=== PATIENT | male | born 1970 | race Caucasian/White ===

== ENCOUNTER → 2017-11-10 | Outpatient (CLI) | payer OTHER ==
[~2017-11-10] MED LIST: ASPIR 8181 MG PO; ATORVASTATIN CA40 MG PO; BRILINTA90 MG PO; HYDROCODONE-AP1 EAC6 PO; KEFLEX500 M1 PO; LOPRESSOR25 PO; MEDROLDOSEPACK PO; NITROGLYCERIN0.4 MG SUBLING; PLAVIX 75 MG TA75 M1
[2017-11-10 07:33] LABS: CHOLESTEROL 96 mg/dL (<200); HDL CHOLESTEROL 29 mg/dL (>40); LDL CHOLESTEROL 30 mg/dL (<100); SERUM ASSESSMENT Clear; TC:HDL 3.3 Ratio (Not establshd); TRIGLYCERIDE 185 mg/dL (<150); VLDL 37 mg/dL (<40)
== END ==
LOC: M.LAB 06:57
PROVIDERS: Internal Medicine Cardiovascular Disease
DX: E78.2 Mixed hyperlipidemia (principal); Z87.891 Personal history of nicotine dependence

== ENCOUNTER 2018-04-10 05:48 | Inpatient (IN) | payer OTHER ==
[2018-04-10] VITALS (10 sets, daily range): BP systolic 114–142; BP diastolic 63–81
[~2018-04-10] VITALS: Ht 175.3 cm; Wt 112.9 kg
[2018-04-10 06:22] LABS: ABSOLUTE BASOPHILS 0.1 thou/uL (0.0-0.2); ABSOLUTE EOSINOPHILS 0.2 thou/uL (0.0-0.7); ABSOLUTE LYMPHOCYTES 1.8 thou/uL (0.8-5.3); ABSOLUTE MONOCYTES 0.6 thou/uL (0.0-1.2); ABSOLUTE NEUTROPHILS 5.4 thou/uL (1.6-8.1); BASOPHILS 1.3 %; EOSINOPHILS 2.7 %; HEMATOCRIT 41.9 % (42.0-52.0); HEMOGLOBIN 14.4 gm/dL (14.0-18.0); LYMPHOCYTES 21.8 %; MCH 29.6 pg (26.0-34.0); MCHC 34.3 g/dL (28.0-37.0); MCV 86.3 fL (80.0-100.0); MONOCYTES 7.6 %; MPV 8.5 fl. (7.2-11.1); NUCLEATED RBCS 0 /100WBC; PLATELET COUNT* 238 thou/uL (150-400); POLYS 66.6 %; RBC 4.86 mil/uL (4.50-6.00); RDW-CV 12.9 % (10.5-14.5); WBC 8.1 thou/uL (4.0-11.0)
[2018-04-10 06:27] LABS: ANION GAP 9 mmol/L (7-16); BUN 14 mg/dL (7-18); CALCIUM 8.8 mg/dL (8.5-10.1); CHLORIDE 103 mmol/L (98-107); CO2 27 mmol/L (21-32); CREATININE 0.9 mg/dL (0.6-1.3); GLUCOSE 169 mg/dL (70-99); POTASSIUM 3.5 mmol/L (3.5-5.1); SODIUM 139 mmol/L (136-145)
[2018-04-10 06:38] LABS: ALBUMIN 3.7 g/dL (3.4-5.0); ALKALINE PHOSPHATASE 85 U/L (46-116); LIPASE 106 U/L (73-393); NT-PRO BRAIN NAT PEPTIDE 99 pg/mL (<300); SGOT 20 U/L (15-37); SGPT 41 U/L (30-65); TOTAL BILIRUBIN 0.8 mg/dL (<0.1-1.0); TROPONIN-I LEVEL <0.06 ng/mL (<0.06)
[2018-04-10 06:49] LABS: APTT 26.9 Seconds (25.0-31.3); PROTIME 10.5 Seconds (9.20-11.50)
[2018-04-10 10:39] LABS: ANION GAP 9 mmol/L (7-16); BUN 14 mg/dL (7-18); CALCIUM 8.8 mg/dL (8.5-10.1); CHLORIDE 104 mmol/L (98-107); CHOLESTEROL 97 mg/dL (<200); CO2 25 mmol/L (21-32); CREATININE 0.9 mg/dL (0.6-1.3); GLUCOSE 127 mg/dL (70-99); HDL CHOLESTEROL 30 mg/dL (>40); LDL CHOLESTEROL 46 mg/dL (<100); POTASSIUM 4.1 mmol/L (3.5-5.1); SODIUM 138 mmol/L (136-145); TC:HDL 3.2 Ratio (Not establshd); TRIGLYCERIDE 107 mg/dL (<150); VLDL 21 mg/dL (<40)
[2018-04-10 10:40] LABS: SERUM ASSESSMENT Clear
--- NOTE | 2018-04-10 11:02 | NUR ---
PT SIGNED CONSENT FORM FOR PIERCING ARTIST. CONSENT PLACED IN PT'S CHART.
--- NOTE | 2018-04-10 12:30 | NUR ---
POST HEART CATH R RADIAL SITE-C/D/I, NO HEMATOMA BEDISDE REPORT GIVEN PATIENT WITH SOME PAIN R SHOULDER/CHEST AREA, IMPROVING WILL CONTNUE TO MONITOR
--- NOTE | 2018-04-10 13:00 | CARD ---
[address] [address] CARDIAC CATH REPORT Name: FLOR LOPEZ Room: [address] IN ..#: [id number] Admission: 04/10/18 Attend Phys: Vijay Arana MD Discharge: Date of : 68 Report #: [id number] THIS REPORT FOR: //name// APPROVED REPORT Study performed: 04/10/2018 10:29:07 Patient Details The patient is a 47 year-old male Event Personnel Harman Rahman Direct Support Staff Member, Vega Winkel, Angela RCIS Scrub, Kucera, Brad Monitor, Gray, Jill RN Conductor Freight Procedures Performed Left Heart Cath w/or w/o Coronaries [facility] Procedure Narrative The patient was brought electively to the Cardiac Catheterization Laboratory and was prepped and draped in a sterile manner. The right wrist was infiltrated with 2% Lidocaine subcutaneous anesthesia. A Slender Glidesheath sheath was inserted into the right radial artery. Coronary angiography was performed using coronary diagnostic catheters. The right coronary system was accessed and visualized with a Diagnostic 5Fr 4.0 [place] catheter. The left coronary system was accessed and visualized with a Diagnostic 5Fr 4.0 [place] catheter. The left ventricle was accessed and visualized with a Diagnostic 6Fr angled pig catheter. The patient tolerated the procedure well and there were no complications associated with the procedure. Intraoperative Conscious Sedation Sedation start time: 1127 Case end Time: 1159 Fentanyl 50 mcg Versed 2 mg Fluoro Time: 2.6 minutes Dose: DAP 76204 cGycm2 123 mGy Contrast Type and Amount: Omnipaque 105 ml Coronary Angiography The patient's coronary anatomy is right dominant. Diagnostic Cath Left Main Short and normal LAD 90% tubular stenosis in the proximal portion of the vessel. 50% [place] [address] CARDIAC CATH REPORT Name: FLOR LOPEZ Room: [address] IN [facility]#: [id number] Admission: 04/10/18 Attend Phys: Vijay Arana MD Discharge: Date of : 68 Report #: [id number] stenosis in the distal vessel after the takeoff of a second diagonal branch. Diagonal 1 No significant disease noted Diagonal 2 No significant disease noted Circumflex Widely patent stent noted proximally. There is a 90% stenosis right at the takeoff of a large obtuse marginal branch. OM1 No significant disease noted OM2 No significant disease noted Right Coronary Totally occluded in the midportion R PDA Fills by right to right and [id number]-sv-iacpl collaterals. No significant disease noted RPLV Faintly visualized by krxi-pb-bxlym collaterals Left Ventriculography The left ventricle is normal in size with preserved contractility. The left ventricular ejection fraction is estimated to be 60%. There is hypokinesis of the basal portion of the inferior wall. Hemodynamics The aortic pressure is 97/64 mmHg with a mean of 78 mmHg. The left ventricular pressure is 103/9 mmHg with a mean of mmHg. The left ventricular end diastolic pressure is 17 mmHg. Pullback from the left ventricle to the aorta revealed no gradient across the aortic valve. Conclusion 1. Three-vessel coronary artery disease as outlined above. 2. Preserved left ventricular systolic function. 3. Normal left ventricular end-diastolic pressure. Recommendations 1. Recommend coronary artery bypass grafting. <ELECTRONICALLY SIGNED> By: Harman Rahman MD, FACC 04/10/18 1259 1259 [id number] Rahman MD, FACC /INF
--- NOTE | 2018-04-10 14:20 | EKG ---
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[facility] : 1970 Requested By: Melodie Nielson Order Number: [id number] MD: Harman Rahman Measurements Intervals [place] Rate: 65 P: 51 KS: 141 QRS: -7 QRSD: 106 T: 51 QT: 398 QTc: 414 Interpretive Statements Sinus rhythm Abnormal R-wave progression, early transition Compared to ECG 02/24/2017 01:03:36 Intraventricular conduction delay no longer present Electronically Signed On 04-10-2018 14:20:13 NETWORK DESIGN ARCHITECT by Harman Rahman [email or web address] <ELECTRONICALLY SIGNED> By: Harman Rahman MD, FACC 04/10/18 1420 [id number] [id number] Harman Rahman MD, FAC /EPI
--- NOTE | 2018-04-10 16:03 | NUR ---
Pt scheduled to transfer to [facility] on Friday for open heart surgery on Friday per Dr Rahman. Nikolai spoke with Mark MatthewsManager Trainee, at [facility], she requested that staff contact the Mark Anand first thing Friday morning at [phone], to get bed assignment and accepting Dr davis. Mark Anand wants Pt to be at [facility] before 3pm on Friday. Updated Mauricio Chun and nurse of Friday disposition.
--- NOTE | 2018-04-10 23:26 | NUR ---
RECEIVED REPORT AND ASSUMED CARE AT 1900. VSS. CARDIAC MONITORING IN PLACE. PT DENIES PAIN. ASSESSMENT COMPLETED CHARTED. DISCUSSED PLAN OF CARE WITH PT, VERBALIZED UNDERSTANDING. PT UP AD VINCENZO IN ROOM, ON RA. MEDICATION ADMIN PER EMAR. WILL CONTINUE TO MONITOR FOR REMAINDER OF THE SHIFT
[2018-04-11] VITALS: BP 107/62
[2018-04-11 04:00] VITALS: BP 137/76
--- NOTE | 2018-04-11 07:25 | NUR ---
CHANGE OF SHIFT BEDSIDE REPORT GIVEN PATIENT SEEN AT BEDSIDE, IN BED RESTING ASSUMED PATIENT CARE
[2018-04-11 08:30] LABS: ABSOLUTE BASOPHILS 0.1 thou/uL (0.0-0.2); ABSOLUTE EOSINOPHILS 0.1 thou/uL (0.0-0.7); ABSOLUTE LYMPHOCYTES 1.5 thou/uL (0.8-5.3); ABSOLUTE MONOCYTES 0.6 thou/uL (0.0-1.2); ABSOLUTE NEUTROPHILS 5.3 thou/uL (1.6-8.1); BASOPHILS 0.9 %; HEMATOCRIT 40.5 % (42.0-52.0); HEMOGLOBIN 13.7 gm/dL (14.0-18.0); LYMPHOCYTES 19.9 %; MCH 29.9 pg (26.0-34.0); MCHC 33.9 g/dL (28.0-37.0); MCV 88.2 fL (80.0-100.0); MONOCYTES 7.7 %; MPV 8.9 fl. (7.2-11.1); NUCLEATED RBCS 0 /100WBC; PLATELET COUNT* 213 thou/uL (150-400); POLYS 69.5 %; RBC 4.59 mil/uL (4.50-6.00); RDW-CV 12.8 % (10.5-14.5); WBC 7.7 thou/uL (4.0-11.0)
[2018-04-11 08:38] LABS: CALCIUM 8.9 mg/dL (8.5-10.1); CREATININE 0.9 mg/dL (0.6-1.3); POTASSIUM 3.8 mmol/L (3.5-5.1)
[2018-04-11 12:28] VITALS: BP 120/74
[2018-04-11 16:01] VITALS: BP 119/67
[2018-04-11 20:00] VITALS: BP 98/57
[2018-04-12] VITALS: BP 107/59
[2018-04-12 04:00] VITALS: BP 97/58
--- NOTE | 2018-04-12 07:36 | NUR ---
ASSUMED PT CARE AT 1930. ASSESSMENT COMPLETED CHARTED. ABLE TO MAKE NEEDS KNOWN. UP AD VINCENZO. C/O SLIGHT DISCOMFORT DURING THE NIGHT IN CHEST AT TIMES BUT MOST OF THE TIME HE HAD NO PAIN. PT RESTING IN BED AT THIS TIME. WONDERING WHEN HE WILL LEAVE FOR [facility]. WILL CONTINUE TO MONITOR.
[2018-04-12 07:45] VITALS: BP 147/71
[2018-04-12 09:21] VITALS: BP 147/71
--- NOTE | 2018-04-12 11:33 | NUR ---
REPORT CALLED TO IGLESIA IN CCU AT [facility]. PT TRANSFERRED VIA EMS
[2018-04-18] MEDS ORDERED: HYDROCODONE-AP1 EAC6 PO (10:38)
== END 2018-04-12 11:30 | disposition short-term general hospital (02) | DRG 286 ==
LOC: M.ERS 05:48 → M.TBA-ER 09:13 → M.2W 09:13
PROVIDERS: Internal Medicine Cardiovascular Disease; Personal Emergency Response Attendant; ADMIT Internal Medicine
PROC: B2111ZZ Fluoroscopy of Multiple Coronary Arteries using Low Osmolar Contrast (ICD-10-PCS; principal; 2018-04-10)
PROC: 4A023N7 Measurement of Cardiac Sampling and Pressure, Left Heart, Percutaneous Approach (ICD-10-PCS; principal; 2018-04-10)
DX: I25.110 Atherosclerotic heart disease of native coronary artery with unstable angina pectoris (principal); I50.33 Acute on chronic diastolic (congestive) heart failure; I11.0 Hypertensive heart disease with heart failure; E78.5 Hyperlipidemia, unspecified; Z95.5 Presence of coronary angioplasty implant and graft; Z79.82 Long term (current) use of aspirin; Z79.899 Other long term (current) drug therapy; Z87.891 Personal history of nicotine dependence

== ENCOUNTER 2019-11-09 19:35 | Emergency (ER) | payer OTHER ==
[~2019-11-09] VITALS: Ht 175.3 cm; Wt 104.3 kg
[2019-11-09] MEDS ORDERED: TRIAMCINOLONE A80 G2 TOP (21:25)
[2019-11-09] MEDS ORDERED: CENTANY30 GM TOP (21:25)
[2019-11-09 21:48] VITALS: BP 137/95
== END 2019-11-09 21:48 | disposition home or self-care (01) ==
LOC: M.ERS 19:35
DX: L25.9 Unspecified contact dermatitis, unspecified cause (principal); F17.210 Nicotine dependence, cigarettes, uncomplicated; Z90.89 Acquired absence of other organs; Z95.5 Presence of coronary angioplasty implant and graft